=== PATIENT | female | born 1960 | race Caucasian/White ===

== ENCOUNTER → 2017-08-30 10:49 | Outpatient (CLI) | payer MEDICARE ==
[~2017-08-30] VITALS: Ht 167.6 cm; Wt 134.1 kg
--- NOTE | ~2017-08-30 | HEMODYNAMI ---
PATIENT:BRIAN CHERRY I MEDICAL RECORD: [id number] : 60 LOCATION:DDoreenCAT ADMISSION DATE: 08/30/17 Generatedon:08/30/201715:14 Patient name: BRIAN CHERRY Patient #: [id number] SSN : : 1960 Date of study: 08/30/2017 Page: Of Hemodynamic Procedure Report Patient Data Patient Demographics Procedure consent was obtained First Name: BRIAN Gender: Female Last Name: JO ANN : 1960 [facility] Initial: I Age: 56 year(s) Patient #: [id number] Race: Unknown Additional ID: [id number] Contact details Address: [address] [address] State: [place] City: [place] Zip code: [address] Past Medical History Allergies: No known allergies Admission Admission Data Admission Date: 08/30/2017 Admission Time: 10:49 Procedure Procedure Types Cath Procedure Diagnostic Procedure LHC LHC w/Coronaries Procedure Description Procedure Date Procedure Date: 08/30/2017 Procedure Start Time: 15:03 Procedure End Time: 15:14 Procedure Staff Name Function Magan Sood MD Performing Physician Fanny Rasheed RT Monitor Ash Wong RT Scrub Dima Antonio RN Nurse Procedure Data Cath Procedure Fluoroscopy Diagnostic fluoroscopy Total fluoroscopy Time: time: 12.6 min 12.6 min Diagnostic fluoroscopy Total fluoroscopy dose: dose: 1864 mGy 1864 mGy Contrast Material Contrast Material Type Amount (ml) Isovue 370 53 Entry Location Entry Primary Successful Side Size Upsize Upsize Entry Closure Lipscomb ccessful Closure Location (Fr) 1 (Fr) 2 (Fr) Remarks Device Remarks Radial Right 6 Fr Mechanical artery Short Compression Estimated blood loss: 5 ml Diagnostic catheters Device Type Used For End Catheter Placement DIAGNOSTIC [place] 110cm 5 LV Angiography Fr catheter ([id number]) DIAGNOSTIC [place] 110cm 5 Left Coronary Fr catheter ([id number]) Angiography DIAGNOSTIC [place] 110cm 5 Right Coronary Fr catheter (320458) Angiography Procedure Complications No complications Procedure Medications Medication Administration Route Dosage Oxygen NC 2 l/min Lidocaine 2% added to field 20 Heparin Flush Bag added to field 2 bags (1000units/500ml NS) 0.9% NaCl I.V. 100 ml/hr Radial Cocktail added to field 1 syringe (Verapomil 2mg/Nitro 400mcg/Heparin 1500units) Versed I.V. 2 mg Fentanyl I.V. 100 mcg Versed I.V. 2 mg Fentanyl I.V. 100 mcg Versed I.V. 1 mg Fentanyl I.V. 50 mcg Versed I.V. 1 mg Fentanyl I.V. 50 mcg Hemodynamics Rest Heart Rate: 93 (bpm) Pressure Samples Time Site Value (mmHg) Purpose Heart Use Rate(bpm) 15:06 LV 118/9,12 EDP 92 15:07 AO 88/66(77) Pullback 94 Gradients Valve Time Site Site 2 Mean SEP/DFP Peak To Heart Use 1 (mmHg) (sec/min) Peak Rate (mmHg) (bpm) Aortic 15:07 LV AO 94 88/66(77) Snapshots Pre Cath Intra NCS Post Cath Vital Signs Time Heart Resp SPO2 etCO2 NIBP (mmHg) Rhythm Pain Sedation Rate (ipm) (%) (mmHg) Status Level (bpm) 14:46:49 89 15 100 39.8 152/91(110) NSR 0 (11) 10(A) , No pain 14:51:28 89 14 100 42.8 137/72(104) NSR 0 (11) 10(A) , No pain 14:55:58 81 15 97 45 121/77(92) NSR 0 (11) 10(A) , No pain 15:00:24 80 13 95 44.3 120/79(104) NSR 0 (11) 10(A) , No pain 15:04:55 86 13 98 44.2 121/68(93) NSR 0 (11) 10(A) , No pain 15:09:29 95 13 96 42.7 128/65(90) NSR 0 (11) 10(A) , No pain 15:14:01 83 12 87 43.5 121/68(106) NSR 0 (11) 10(A) , No pain Medications Time Medication Route Dose Verified Delivered Reason Notes Effectiveness by by 14:46:28 Oxygen NC 2 l/min Magan Buffie used for [facility] RN procedure 14:46:34 Lidocaine 2% added 20ml Magan Carrero for local to vial [facility] anesthetic field MD AGUAYO 14:46:40 Heparin Flush added 2 bags Magan Carrero used for Bag to [facility] procedure (1000units/500ml field MD AGUAYO NS) 14:46:49 0.9% NaCl I.V. 100 Magan Barie Per ml/hr [facility] Antonio RN physician 15:00:04 Versed I.V. 2 mg Magan Buffie for sedation [facility] RN, MD 15:00:10 Fentanyl I.V. 100 mcg Magan Buffie for sedation [facility] RN, MD 15:04:07 Versed I.V. 2 mg Magan Buffie for sedation [facility] RN, MD 15:04:10 Fentanyl I.V. 100 mcg Magan Buffie for sedation [facility] RN, MD 15:05:45 Radial Cocktail added 1 Magan Carrero for (Verapomil to syringe [facility] vasodilation 2mg/Nitro field MD AGUAYO 400mcg/Heparin 1500units) 15:05:50 Versed I.V. 1 mg Magan Buffie for sedation [facility] RN, MD 15:05:54 Fentanyl I.V. 50 mcg Magan Barie for sedation [facility] RN, MD 15:09:17 Versed I.V. 1 mg Magan Buffie for sedation [facility] RN, MD 15:09:21 Fentanyl I.V. 50 mcg Magan Buffie for sedation [facility] Antonio RN, MD Procedure Log Time Note 13:46:33 Diagnostic Cath Status : Elective 13:47:02 Time tracking: Regular hours (M-F 7:00 - 5:00) 13:47:06 Plan of Care:Hemodynamics will remain stable., Cardiac rhythm will remain stable., Comfort level will be maintained., Respiratory function will remain adequate., Patient/ family verbilizes understanding of procedure., Procedure tolerated without complication., Recovers from procedure without complications.. 14:23:44 Fanny Counts RT(R) sent for patient. Start room use. 14:32:31 Patient received from Pre/Post Procedure Room to [facility] 2 Alert and oriented. Tansferred to table in Supine position. 14:32:32 Warm blankets applied, and chelsea hugger turned on for patient comfort. 14:32:33 Correct patient and procedure confirmed by team. 14:32:34 Signed procedure consent form obtained from patient. 14:32:35 ECG and BP/O2 sat monitors applied to patient. 14:32:45 H&P Date Dictated: 08/04/2017 Within 30 days and on chart., H&P Addendum completed by physician on day of procedure. (MUST COMPLETE FOR ALL OUTPATIENTS). 14:32:46 Pre-procedure instructions explained to patient. 14:32:46 Pre-op teaching completed and patient verbalized understanding. 14:32:48 Family in waiting room. 14:32:49 Patient NPO since Breakfast. 14:32:59 Patient allergic to No known allergies 14:45:18 Vital chart was started 14:45:21 Rhythm: sinus rhythm 14:45:22 Full Disclosure recording started 14:45:26 Patient diabetic? No. 14:45:30 Is the patient allergic to Iodine/contrast media? No. 14:45:33 Previous problem with sedation/anesthesia? No ? 14:45:35 Snore? Yes 14:45:36 Sleep apnea? No 14:45:37 Deviated septum? No 14:45:38 Opens mouth fully? No 14:45:39 Sticks out tongue? Yes 14:45:40 Airway obstruction? No ? 14:45:42 Dentures? No ? 14:45:45 Pre procedure: right dorsailis pedis pulse 2+ Normal; easily identifiable; not easily obliterated 14:45:51 Modified Gonzalo's test Ulnar < 7 seconds 14:45:53 Patient pain scale 0/10 ?. 14:46:03 IV patent on arrival in left hand with 0.9% NaCl at [facility]. 14:46:06 Lab results completed and on chart. 14:46:10 Right Radial & Right Groin area was prepped with chlora-prep and draped in sterile fashion 14:46:10 Alarms reviewed by R. N. 14:46:11 Sharps counted by scrub and verified by R.N. 14:46:28 Oxygen 2 l/min NC was administered by Dima Antonio RN; used for procedure; 14:46:32 Use device set Radial Dx or PCI 14:46:34 Lidocaine 2% 20ml vial added to field was administered by Magan Sood MD; for local anesthetic; 14:46:34 ACIST Syringe (13227) opened to sterile field. 14:46:34 Medline Cath Pack ([id number]) opened to sterile field. 14:46:35 Bag Decanter (2001S) opened to sterile field. 14:46:35 DIAGNOSTIC WIRE .035 260cm J wire (891292) opened to sterile field. 14:46:36 ACIST Hand Control (57265) opened to sterile field. 14:46:36 ACIST Manifold (66229) opened to sterile field. 14:46:37 Tegaderm 4 x 4 (1626W) opened to sterile field. 14:46:38 MBrace Wrist Support ([id number]) opened to sterile field. 14:46:39 SHEATH 6Fr Prelude Radial ([id number]) opened to sterile field. 14:46:40 Heparin Flush Bag (1000units/500ml NS) 2 bags added to field was administered by Magan Sood MD; used for procedure; 14:46:49 0.9% NaCl 100 ml/hr I.V. was administered by Dima Antonio RN; Per physician; 14:48:14 Baseline sample Acquired. 14:57:38 Final Timeout: patient, procedure, and site verified with staff and physician. All members of the team are in agreement. 14:57:42 Right Radial site verified by team. 14:57:44 Physical assessment completed. ASA score P 2 - A patient with mild systemic disease as per Magan Sood MD. 14:57:46 Sedation plan: IV Moderate Sedation Medication:Versed, Fentanyl 15:00:04 Versed 2 mg I.V. was administered by Dima Antonio RN; for sedation; 15:00:10 Fentanyl 100 mcg I.V. was administered by Dima Antonio RN; for sedation; 15:00:22 Zero performed for pressure channel P1 15:03:20 Procedure started. 15:03:25 Local anesthetic to right radial artery with Lidocaine 2% by Magan Sood MD.INITIAL ACCESS ONLY 15:04:07 Versed 2 mg I.V. was administered by Dima Antonio RN; for sedation; 15:04:10 Fentanyl 100 mcg I.V. was administered by Dima Antonio RN; for sedation; 15:04:46 A 6 Fr Short sheath was inserted into the Right Radial artery 15:05:19 A DIAGNOSTIC [place] 110cm 5 Fr catheter ([id number]) was advanced over the wire and used for LV Angiography. 15:05:45 Radial Cocktail (Verapomil 2mg/Nitro 400mcg/Heparin 1500units) 1 syringe added to field was administered by Magan Sood MD; for vasodilation; 15:05:50 Versed 1 mg I.V. was administered by Dima Antonio RN; for sedation; 15:05:54 Fentanyl 50 mcg I.V. was administered by Dima Antonio RN; for sedation; 15:06:32 LV gram done using COBIAN 15:06:36 Injector settings: Ml/sec: 5, Volume: 15, 15:07:12 EF : 55 % 15:07:23 LV hemodynamics recorded. 15:07:45 A DIAGNOSTIC [place] 110cm 5 Fr catheter (677019) was advanced over the wire and used for Left Coronary Angiography. 15:09:13 A DIAGNOSTIC [place] 110cm 5 Fr catheter (415242) was advanced over the wire and used for Right Coronary Angiography. 15:09:17 Versed 1 mg I.V. was administered by Dima Antonio RN; for sedation; 15:09:19 Catheter removed. 15:09:21 Fentanyl 50 mcg I.V. was administered by Dima Antonio RN; for sedation; 15::27 Sheath removed intact; hemostasis achieved with Mechanical Compression to the Right Radial artery. 15:09:40 Procedure ended.(Physican Out) 15:09:57 Fluoroscopy time 12.60 minutes. 15:10:02 Fluoroscopy dose: 1864 mGy 15:10:02 Flurop Dose total: 1864 15:10:07 Contrast amount:Isovue 370 53ml. 15:10:14 Sharps counted by scrub and verified by R.N. 15:10:18 TR band inflated with 12cc of air. 15:10:19 Insertion/operative site no bleeding no hematoma. 15:10:23 TR BAND Standard ([id number]) opened to sterile field. 15:10:36 Post right radial artery:stable, clean and dry 15:10:39 Post Procedure Pulses reassessed and unchanged 15:10:42 Post-procedure physical assessment completed. ASA score P 2 - A patient with mild systemic disease as per Magan Sood MD. 15:10:44 Post procedure rhythm: unchanged. 15:10:47 Estimated blood loss: 5 ml 15:10:49 Post procedure instruction explained to patient.Patient verbalizes understanding. 15:10:50 Patient needs reinforcement of post procedure teaching. 15:11:17 Procedure Complication : No complications 15:11:19 See physician's report for complete and final results. 15:11:54 Procedure and supply charges have been captured, reviewed, submitted and are correct. 15:13:58 Vital chart was stopped 15:14:00 Report given to Pre/Post Procedure Room. 15:14:02 Patient transfered to Pre/Post Procedure Room with Bed. 15:14:09 Procedure ended. 15:14:09 Full Disclosure recording stopped 15:14:13 End room use (Document Last) Device Usage Item Name Manufacture Quantity Catalog Number Hospital Part Current M inimal Lot# / Charge Number Stock Stock Serial# Code ACIST Syringe Acist 1 91623 232653 569643 188616 2 0 (35595) [employer] Medline Cath Cardinal 1 [id number] 114812 18215 798887 5 [employer] ([id number]) Bag Decanter Microtek 1 2001S 473220 53964 557911 5 (2001S) Medical Inc. DIAGNOSTIC WIRE [facility] [place] 1 109907 694318 993981 299164 3 0 .035 260cm J wire (793074) ACIST Hand Acist 1 19674 663775 635273 551064 5 Control (78445) [employer] ACIST Manifold Acist 1 47678 084983 287243 392823 5 (92398) [employer] Tegaderm 4 x 4 3M 1 1626W 399172 568585 549446 5 (1626W) MBrace Wrist Advanced 1 140-0250-00 669799 65020 656024 5 Support Vascular ([id number]) Dynamics SHEATH 6Fr Merit 1 [id number] 958272 734058 076264 5 Prelude Radial Medical ([id number]) DIAGNOSTIC Terumo 1 40-8295 407303 858478 954174 5 [place] 110cm 5 Fr catheter (682510) TR BAND Terumo 1 [id number] 000616 644310 554054 4 0 Standard ([id number]) Signature Audit [place] Stage Time Signature Unsigned Intra-Procedure 08/30/2017 Fanny 3:14:25 PM Counts RT(R) Signatures Monitor : Fanny Signature : Counts RT Date : Time : [address] [place] [address]
--- NOTE | ~2017-08-30 | OP ---
PATIENT NAME: BRIAN CHERRY I MEDICAL RECORD: [id number] :60 LOCATION:D.CAT ADMISSION DATE: SURGEON: STACY ARCOS MD DATE OF OPERATION: 08/30/2017 PROCEDURE: Left heart catheterization, selective coronary angiography, right radial artery approach. CATHETERS: [place] catheter, radial sheath. The procedure was well tolerated. The patient was returned to kaye. Sheath was removed. TR band was placed. LEFT VENTRICULOGRAPHY: In 30-degree COBIAN view, normal wall motion, normal systolic function. CORONARY ANATOMY: LEFT MAIN: Left main is free of disease. LAD: Free of disease in diagonal system. CIRCUMFLEX: Free of disease in the marginal system. RIGHT CORONARY ARTERY: Dominant artery, gives rise to PDA, free of disease. IMPRESSION: Normal LV systolic function. Normal coronary anatomy. Positive treadmill stress test. TRANSINT:[id number] Voice Confirmation ID: [id number] DOCUMENT ID: [id number] STACY ARCOS MD at 1214 CC: [id number] DICTATION DATE: 08/30/17 1521 BUSINESS INFORMATION ANALYST: 08/30/17 1617 DEP CLI 08/30/17 [id number] [place] [address]
[~2017-08-30 10:49] MED LIST: CYMBALTA60 MG PO; DURAGESIC1 PATCH .3; FLEXERIL10 MG PO; FOLIC ACID1 MG PO; KLOR-CON M2020 MEQ PO; MECLIZINE HCL25 MG PO; MEDROL DOSE PACK4 MG PO; NORCO 10/325 TA1 TA1 PO; OMEPRAZOLE20 M1 PO; PRILOSEC20 MG PO; VITAMIN B-625 MG PO; VITAMIN D250000 UNIT PO
[2017-08-30 11:51] VITALS: BP 156/81; Ht 167.6 cm; Wt 134.1 kg
[2017-08-30 12:02] LABS: BASOPHILS 0.2 % (0-2); EOSINOPHILS 3.9 % (0-7); HEMATOCRIT 40.2 % (36.0-48.0); HEMOGLOBIN 13.5 g/dL (12-16); IMMATURE GRANULOCYTES 0.2 % (0-5); LYMPHOCYTES 40.1 % (15-50); MCH 32.3 pg (26.0-34.0); MCHC 33.6 g/dL (31.0-37.0); MCV 96.2 fL (80.0-100.0); MEAN PLATELET VOLUME 10.7 fL (7.4-10.4); MONOCYTES 5.3 % (2-11); NEUTROPHILS 50.3 % (40-80); PLATELET COUNT 156 10x3/uL (130-400); RBC 4.18 10x6/uL (4.00-5.40); RDW 12.8 % (11.5-14.5); WBC 5.9 10x3/uL (4.8-10.8)
[2017-08-30 12:14] LABS: ANION GAP 13.1 mmol/L (8-16); CALCIUM 9.1 mg/dL (8.5-10.1); CARBON DIOXIDE 27.6 mmol/L (21.0-32.0); CREATININE - SERUM 0.9 mg/dL (0.6-1.3); POTASSIUM - SERUM 3.7 mmol/L (3.5-5.1)
== END | disposition home or self-care (01) ==
LOC: D.CATH 10:49
PROVIDERS: Internal Medicine Interventional Cardiology
DX: R94.39 Abnormal result of other cardiovascular function study (principal); Z01.812 Encounter for preprocedural laboratory examination

== ENCOUNTER 2019-07-05 09:00 | Outpatient (CLI) | payer MEDICARE ==
[2017-08-30 11:51] VITALS: BMI 47.7
== END 2019-07-05 10:00 | disposition home or self-care (01) ==
LOC: D.MAMMO 09:00
PROVIDERS: ATTEND Obstetrics & Gynecology
DX: N64.4 Mastodynia (principal)

== ENCOUNTER 2019-08-18 08:00 | Outpatient (CLI) | payer MEDICARE ==
[2017-08-30 11:51] VITALS: BMI 47.7
== END 2019-08-18 08:01 | disposition home or self-care (01) ==
LOC: D.MAMMO 08:00
PROVIDERS: ATTEND Surgery
DX: N63.21 Unspecified lump in the left breast, upper outer quadrant (principal); Z80.3 Family history of malignant neoplasm of breast

== ENCOUNTER 2019-08-31 06:30 | Day surgery (SDC) | payer MEDICARE ==
[2019-08-28 13:46] LABS: BASOPHILS 0 % (0-2); EOSINOPHILS 2.6 % (0-7); HEMATOCRIT 44.5 % (36.0-48.0); HEMOGLOBIN 14.3 g/dL (12-16); IMMATURE GRANULOCYTES 0.2 % (0-5); MCH 31.5 pg (26.0-34.0); MCHC 32.1 g/dL (31.0-37.0); MEAN PLATELET VOLUME 9.8 fL (7.4-10.4); MONOCYTES 5.6 % (2-11); NEUTROPHILS 59.6 % (40-80); RBC 4.54 10x6/uL (4.00-5.40); RDW 12.4 % (11.5-14.5); WBC 5.3 10x3/uL (4.8-10.8)
[2019-08-28 13:53] LABS: CALC OSMOLALITY 276 mosm/kg (275-300); CALCIUM 9.2 mg/dL (8.5-10.1); CARBON DIOXIDE 30.7 mmol/L (21.0-32.0); CHLORIDE - SERUM 100 mmol/L (98-107); CREATININE - SERUM 0.8 mg/dL (0.6-1.3); GLUCOSE 110 mg/dL (74-106); PLATELET COUNT 221 10x3/uL (130-400); POTASSIUM - SERUM 4.4 mmol/L (3.5-5.1); SODIUM 138 mmol/L (136-145); UREA NITROGEN 13 mg/dL (7-18); eGFR NON AFRICAN AMERICAN 78 mL/min (90-120)
[2019-08-29 10:31] LABS: APTT 28.2 SECONDS (22.8-39.4); INR 0.89 (0.85-1.17)
[~2019-08-31] VITALS: Ht 167.6 cm; Wt 150.1 kg
[~2019-08-31 06:30] MED LIST changes: +HYDROCODON-ACE1 EAC2 PO
[2019-08-31] MEDS ORDERED: BUTRANS1 EAC2 TRANSDERM (07:08)
[2019-08-31 07:11] VITALS: BP 151/635; Ht 167.6 cm; Wt 150.1 kg
[2019-08-31] MEDS ORDERED: HYDROCODON-ACE1 EA10 PO (11:25)
--- NOTE | 2019-08-31 13:51 | NUR ---
1325-REMOVED IV WITH CATH INTACT,DISPOSED INTO SHARPS,COVERED WITH GUAZE,SECURED WITH MEDIPORE TAPE.
--- NOTE | 2019-08-31 13:51 | NUR ---
1315-AMBULATED TO RESTROOM AND VOIDED WITHOUT COMPLICATIONS.
--- NOTE | 2019-08-31 13:52 | NUR ---
1338-REVIEWED POST OPERATIVE INSTRUCTIONS AND FOLLOW UP APPOINTMENT. VERBALIZED UNDERSTANDING. ESCORTED OUT WITH W/C WITH FAMILY AWAITING TO DRIVE HOME. DRESSING CDI. PAIN TOLERABLE FOR PTS CONDITION AND PROCEDURE.
--- NOTE | 2019-09-01 13:03 | OP ---
PATIENT NAME: BRIAN CHERRY I MEDICAL RECORD: [id number] :60 LOCATION:D.OPS ADMISSION DATE: SURGEON: STEPHANIE BUTTS MD DATE OF OPERATION: 08/31/2019 PREOPERATIVE DIAGNOSES: 1. Left breast cancer. 2. Morbid obesity. POSTOPERATIVE DIAGNOSES: 1. Left breast cancer. 2. Morbid obesity. PROCEDURE: Left needle local lumpectomy with left axillary sentinel lymph node biopsy. SURGEON: Stephanie Butts MD REPORT OF PROCEDURE: Preoperatively, the patient underwent needle localization and lymphoscintigraphy of the left breast. The patient was taken to the operating room where the breast and axilla were prepped and draped in sterile fashion. A skin incision was made on the left upper outer quadrant of the breast where the wire was exiting through the skin. Electrocautery was used to dissect through the subcutaneous tissue. We took out a large core of breast tissue surrounding this wire. As we took this out, we were able to get a complete section of tissue, which was sent off and showed evidence of the wire being intact and the biopsy clip being present within the middle of the specimen. After the specimen was out, it was marked appropriately. The wound was then packed with a lap sponge. We then approached the patient's left axilla. Preoperative lymphoscintigraphy had shown an uptake in the left axilla and a single lymph node, and an incision was made on the inferior aspect of the left axilla and electrocautery was used to dissect through the subcutaneous tissues and fascia until we entered the axillary space. We pulled up a piece of the axillary tissue and was able to find the single sentinel lymph node. This had a reading of approximately 1400. This single lymph node appeared to be normal in size with no change in color. We took this lymph node out and clipped the ducts with small surgical clips. This was then sent off for permanent specimen. We inspected the remainder of the axilla and did not find any readings that would require us to remove any further lymph nodes. We then irrigated out both wounds with sterile water. The subcutaneous tissues were all reapproximated with interrupted 3-0 Vicryls and the skin incisions were closed with running subcutaneous 5-0 Monocryl. A total of 10 mL of 0.25% Marcaine with epinephrine was infused into the surrounding tissues and the wounds were dressed appropriately. COMPLICATIONS: None. CONDITION: Stable. ANESTHESIA: General endotracheal and local. BLOOD LOSS: Minimal. TRANSINT:[id number] Voice Confirmation ID: [id number] DOCUMENT ID: [id number] OPERATIVE REPORT [id number] BRIAN CHERRY CHRISTIAN MD at 1303 CC: TED IYER DO [id number] DICTATION DATE: 08/31/19 1137 PROCESSING MANAGER: 08/31/19 1228 [facility] 08/31/[address] [address]
== END 2019-08-31 13:38 | disposition home or self-care (01) ==
LOC: D.OPS 06:30
PROVIDERS: Anesthesiology; ATTEND Surgery
DX: C50.612 Malignant neoplasm of axillary tail of left female breast (principal); E66.01 Morbid (severe) obesity due to excess calories; E78.5 Hyperlipidemia, unspecified; I10 Essential (primary) hypertension; Z87.891 Personal history of nicotine dependence

== ENCOUNTER → 2020-07-04 13:16 | Outpatient (CLI) | payer MEDICARE ==
[2020-04-05 08:21] VITALS: BMI 53.4
[~2020-07-04 13:16] MED LIST changes: +BUTRANS1 EAC2 TRANSDERM; +CYCLOBENZAPRINE10 MG PO; -FLEXERIL10 MG PO; +FUROSEMIDE40 MG PO; +HYDROCODON-ACE1 EA10 PO; -HYDROCODON-ACE1 EAC2 PO; +NORCO 7.5-3251 EACH PO; +TAMOXIFEN CITRA20 MG PO
== END | disposition home or self-care (01) ==
LOC: D.US 06-26 09:00
PROVIDERS: ATTEND Surgery
DX: N60.02 Solitary cyst of left breast (principal)

== ENCOUNTER 2020-07-22 15:00 | Outpatient (CLI) | payer MEDICARE ==
[2020-04-05 08:21] VITALS: BMI 53.4
== END 2020-07-22 23:59 | disposition home or self-care (01) ==
LOC: D.MAMMO 15:00
PROVIDERS: ATTEND Surgery
DX: C50.919 Malignant neoplasm of unspecified site of unspecified female breast (principal)

== ENCOUNTER → 2020-09-26 10:29 | Outpatient (CLI) | payer MEDICARE ==
[2020-04-05 08:21] VITALS: BMI 53.4
== END | disposition home or self-care (01) ==
LOC: D.US 09-19 15:00
PROVIDERS: ATTEND Family Medicine
DX: R22.42 Localized swelling, mass and lump, left lower limb (principal)